=== PATIENT | female | born 1975 | race African-American/Black ===

== ENCOUNTER 2018-02-06 10:27 | Emergency (ER) | payer SELFPAY ==
[2018-02-06] MEDS ORDERED: Sodium Chloride 0.9% 10 ML Syringe FLUSH PRN ×2 (11:16→13:00)
[2018-02-06] MEDS ORDERED: Labetalol 100 MG/20 ML MDV IVPUSH ONE (11:16)
[2018-02-06] MEDS ORDERED: Aspirin 81 MG Tab.Chew PO ONE (11:17)
--- NOTE | 2018-02-06 11:24 | EDM.PDOC ---
ED HPI GENERAL MEDICAL PROBLEM - General Chief Complaint: Upper Extremity Injury/Pain Stated Complaint: LEFT ARM AND HAND PAIN Time Seen by Provider: 02/06/18 11:09 Source of Information: Reports: Patient History Limitations: Reports: No Limitations - History of Present Illness INITIAL COMMENTS - FREE TEXT/NARRATIVE: 42-year-old female presents for evaluation and treatment of left arm pain. Patient reports that the arm pain began suddenly about 2-3 weeks ago. She states the pain has been intermittent and sharp. Reports that it starts in her left shoulder and moves down into her left forearm and hand. She reports weakness in the left hand. Reports numbness and tingling in the left hand and forearm. No pain, numbness or tingling to the right arm. She reports that the problem initially woke her from sleep about 2 weeks ago. She reports "a little "chest pain. she reports shortness of breath which she attributes to weight gain. She also has been experiencing fluttering in her heart. She denies any chest pain initially but later states that she does have any chest pain she attributes this to a "kink in her neck from sleeping wrong". She denies any abdominal pain, nausea or vomiting. No recent cough or cold symptoms. No recent trauma such as motor vehicle accidents. Patient reports she is left-handed. Patient reports that she does take medications for her blood pressure but denies any other chronic problems. No cardiac history including no previous MIs or arrhythmias. Patient reports she's had something similar to this in the past several years that resolved on its own without intervention. Patient does not have a primary care provider. She moved up to [place] from [place] approximately 1 year ago and has not established with primary care. Left Hand Pain Score (Numeric/FACES): 3 - Related Data Allergies Allergy/AdvReac Type Severity Reaction Status Date / Time No Known Allergies Allergy Verified 02/06/18 10:39 Home Meds: Home Meds Chlorthalidone 25 mg PO DAILY 02/06/18 [History] Cyclobenzaprine [Flexeril] 10 mg PO TID PRN 02/06/18 [History] amLODIPine Besylate [Amlodipine Besylate] 5 mg PO DAILY 02/06/18 [History] Past Medical History Cardiovascular History: Reports: Hypertension Social & Family History - Tobacco Use Smoking Status *Q: Never Smoker - Recreational Drug Use Recreational Drug Use: No Review of Systems - Review of Systems Review Of Systems: See Below Constitutional: Denies: Chills, Fever Eyes: Denies: Vision Change Respiratory: Reports: Shortness of Breath. Denies: Cough Cardiovascular: Reports: Chest Pain, Irregular Heart Rate GI/Abdominal: Denies: Abdominal Pain, Nausea, Vomiting Musculoskeletal: Reports: Neck Pain, Shoulder Pain, Arm Pain. Denies: Back Pain Neurological: Reports: Headache, Numbness, Tingling, Weakness ED EXAM, GENERAL - Physical Exam Exam: See Below Exam Limited By: No Limitations General Appearance: Alert, WD/WN, No Apparent Distress Eye Exam: Bilateral Eye: Normal Inspection, PERRL Ears: Normal External Exam Nose: Normal Inspection Throat/Mouth: Normal Inspection, Normal Lips, Normal Oropharynx, Normal Voice, No Airway Compromise Neck: Normal Inspection, Non-Tender, Other (+ spurlings test with left rotation) Respiratory/Chest: No Respiratory Distress, Lungs Clear, Normal Breath Sounds Cardiovascular: Normal Peripheral Pulses, Regular Rate, Rhythm, No Murmur Peripheral Pulses: 2+: Radial (L), Radial (R) GI/Abdominal: Normal Bowel Sounds, Soft, Non-Tender Back Exam: Normal Inspection. No: Vertebral Tenderness Extremities: Normal Inspection, Normal Range of Motion, Non-Tender Neurological: Alert, Oriented, Normal Cognition, Other (hoof trimmer 5/5 bilaterally) Psychiatric: Normal Affect, Normal Mood Skin Exam: Warm, Dry, Normal Color EKG INTERPRETATION EKG Date: 02/06/18 Time: 11:20 Rhythm: NSR Rate (Beats/Min): 89 [place]: Normal P-Wave: Present QRS: Normal ST-T: Normal QT: Normal EKG Interpretation Comments: NSR at 89 bpm. Left ventricular hypertrophy. No acute ischemic changes. Reviewed by myself and Dr. Anthony. Course - Vital Signs Last Recorded V/S: Last Vital Signs Temp 97.2 F 02/06/18 10:39 Pulse 90 02/06/18 12:19 Resp 14 02/06/18 10:39 BP 154/93 H 02/06/18 12:19 Pulse Ox 98 02/06/18 10:39 - Orders/Labs/Meds Labs: Laboratory Tests 02/06/18 02/06/18 02/06/18 Range/Units 11:45 11:45 11:45 WBC 6.51 (3.98-10.04) K/mm3 RBC 4.66 (3.98-5.22) M/mm3 Hgb 13.7 (11.2-15.7) gm/L Hct 39.0 (34.1-44.9) % MCV 83.7 (79.4-94.8) fl MCH 29.4 (25.6-32.2) pg MCHC 35.1 (32.2-35.5) g/dl RDW Std Deviation 40.4 (36.4-46.3) fL Plt Count 288 (182-369) K/mm3 MPV 10.0 (9.4-12.3) fl Neut % (Auto) 50.8 (34.0-71.1) % Lymph % (Auto) 37.3 (19.3-51.7) % [place] % (Auto) 9.1 (4.7-12.5) % Eos % (Auto) 2.3 (0.7-5.8) Baso % (Auto) 0.2 (0.1-1.2) % Neut # (Auto) 3.31 (1.56-6.13) K/mm3 Lymph # (Auto) 2.43 (1.18-3.74) K/mm3 [place] # (Auto) 0.59 H (0.24-0.36) K/mm3 Eos # (Auto) 0.15 (0.04-0.36) K/mm3 Baso # (Auto) 0.01 (0.01-0.08) K/mm3 PT 10.0 (9.5-12.1) SECONDS INR < 0.93 D-Dimer, Quantitative (0.19-0.50) mg/L Sodium 138 (136-145) mEq/L Potassium 3.6 (3.5-5.1) mEq/L Chloride 103 (98-107) mEq/L Carbon Dioxide 25 (21-32) mEq/L Anion Gap 13.6 (5-15) BUN 8 (7-18) mg/dL Creatinine 1.0 (0.55-1.02) mg/dL Est Cr Clr Drug Dosing 77.63 mL/min Estimated GFR (MDRD) > 60 (>60) mL/min BUN/Creatinine Ratio 8.0 L (14-18) Glucose 145 H (74-106) mg/dL Calcium 7.6 L (8.5-10.1) mg/dL Total Bilirubin 0.6 (0.2-1.0) mg/dL AST TNP ALT TNP Alkaline Phosphatase 83 (46-116) U/L CK-MB (CK-2) 1.2 (0-3.6) ng/ml Troponin I < 0.017 (0.00-0.056) ng/mL Total Protein TNP Albumin 3.0 L (3.4-5.0) g/dl Globulin 4.7 gm/dL Albumin/Globulin Ratio 0.6 L (1-2) 02/06/18 Range/Units 11:45 WBC (3.98-10.04) K/mm3 RBC (3.98-5.22) M/mm3 Hgb (11.2-15.7) gm/L Hct (34.1-44.9) % MCV (79.4-94.8) fl MCH (25.6-32.2) pg MCHC (32.2-35.5) g/dl RDW Std Deviation (36.4-46.3) fL Plt Count (182-369) K/mm3 MPV (9.4-12.3) fl Neut % (Auto) (34.0-71.1) % Lymph % (Auto) (19.3-51.7) % [place] % (Auto) (4.7-12.5) % Eos % (Auto) (0.7-5.8) Baso % (Auto) (0.1-1.2) % Neut # (Auto) (1.56-6.13) K/mm3 Lymph # (Auto) (1.18-3.74) K/mm3 [place] # (Auto) (0.24-0.36) K/mm3 Eos # (Auto) (0.04-0.36) K/mm3 Baso # (Auto) (0.01-0.08) K/mm3 PT (9.5-12.1) SECONDS INR D-Dimer, Quantitative 0.60 H (0.19-0.50) mg/L Sodium (136-145) mEq/L Potassium (3.5-5.1) mEq/L Chloride (98-107) mEq/L Carbon Dioxide (21-32) mEq/L Anion Gap (5-15) BUN (7-18) mg/dL Creatinine (0.55-1.02) mg/dL Est Cr Clr Drug Dosing mL/min Estimated GFR (MDRD) (>60) mL/min BUN/Creatinine Ratio (14-18) Glucose (74-106) mg/dL Calcium (8.5-10.1) mg/dL Total Bilirubin (0.2-1.0) mg/dL AST ALT Alkaline Phosphatase (46-116) U/L CK-MB (CK-2) (0-3.6) ng/ml Troponin I (0.00-0.056) ng/mL Total Protein Albumin (3.4-5.0) g/dl Globulin gm/dL Albumin/Globulin Ratio (1-2) Meds: Medications Discontinued Medications Generic Name Dose Route Start Last Admin Trade Name Freq PRN Reason Stop Dose Admin Aspirin 324 mg 02/06/18 11:17 02/06/18 11:47 Aspirin PO 02/06/18 11:18 324 mg ONETIME ONE Administration Sodium Chloride 100 mls @ 75 mls/hr 02/06/18 13:00 02/06/18 13:31 Normal Saline IV 75 mls/hr ASDIRECTED JOY Administration Iopamidol 50 ml 02/06/18 13:00 02/06/18 13:31 Isovue-370 (76%) IVPUSH 02/06/18 13:01 50 ml ONETIME ONE Administration Iopamidol 100 ml 02/06/18 13:00 02/06/18 13:31 Isovue-370 (76%) IVPUSH 02/06/18 13:01 100 ml ONETIME ONE Administration Labetalol HCl 20 mg 02/06/18 11:16 02/06/18 11:48 Normodyne IVPUSH 02/06/18 11:17 20 mg ONETIME ONE Administration Protocol Sodium Chloride 10 ml 02/06/18 11:16 02/06/18 11:58 Saline Flush FLUSH 10 ml ASDIRECTED PRN Administration Keep Vein Open Sodium Chloride 10 ml 02/06/18 13:00 02/06/18 13:31 Saline Flush FLUSH 10 ml ONETIME PRN Administration IV FLUSH - Radiology Interpretation Free Text/Narrative:: Chest: Portable view of the chest was obtained. Comparison: No prior chest x-ray. Heart size and mediastinum are normal. Lungs are clear. Bony structures are unremarkable. Impression: 1. Nothing acute is seen on portable chest x-ray. CT chest Technique: Multiple axial sections through the chest were obtained. Intravenous contrast was utilized. Comparison: No prior chest CT, previous chest x-ray performed earlier on the same day (11:26 AM. Findings: Pulmonary arteries are well-opacified. No filling defects are seen to indicate pulmonary embolism. Small portion of visualized upper abdominal structures are normal. Mediastinum and hilar regions show no adenopathy or mass. No pericardial thickening is seen. Visualized lungs are clear. No pleural effusions are seen. Incidental small air cyst is seen within the right lung base measuring 7 mm. Bone window settings were reviewed which shows no acute osseous abnormality. Impression: 1. No findings of pulmonary embolism. 2. Other incidental findings as noted above. Left upper extremity venous ultrasound: Multiple real-time images were obtained of the left internal jugular, subclavian, axillary, basilic, brachial, cephalic , radial and ulnar veins. Right subclavian vein was also evaluated. Normal compression, phasic flow and augmentation is seen. Right subclavian vein is also patent. Impression: 1. No evidence of venous thrombosis is seen within the left upper extremity. - Re-Assessments/Exams Free Text/Narrative Re-Assessment/Exam: 02/06/18 12:55 Labs returned with a slightly elevated d-dimer of 0.60. Will obtain PE chest and ultrasound of upper extremity to ensure she does not have a clot causing left arm pain and chest pain. b/p has dropped into the 150s/160s systolic with IV labetolol. She reports she did not take her routine b/p meds this am. Will continue to monitor b/p in ED. 02/06/18 14:[address] and ultrasound results with the patient. I do feel that arm pain, numbness, tingling and weakness is likely stemming from her neck and she may have something like herniated disc or nerve root impingement within her neck. I'll follow up with family medicine for possibly an MRI. Discharge instructions as documented. Departure - Departure Time of Disposition: 14:35 Disposition: Home, Self-Care 01 Condition: Fair Clinical Impression: Arm pain, left - Discharge Information Instructions: Pain Without a Known Cause Referrals: PCP,None [Primary Care Provider] - Cari Rodgers MD [Physician] - Forms: ED Department Discharge Additional Instructions: [id number] Tylenol or Motrin as needed for pain relief. You may use ice or heat as needed for additional pain relief. Recommend follow-up with family medicine within 1-2 weeks to recheck your symptoms. You may need an MRI of your cervical spine to further evaluate the cause of your left arm pain, weakness, numbness and tingling. Recommend Dr. Rodgers or Chetna Desai at the [facility]. Call [phone] to schedule with one of these providers Please return to the ER if your symptoms change or worsen.
[2018-02-06] MEDS ORDERED: Iopamidol 755 Mg/ML 100 ML Bottle IVPUSH ONE (13:00)
[2018-02-06] MEDS ORDERED: Iopamidol 755 MG/ML 50 ML Bottle IVPUSH ONE (13:00)
[2018-02-06] MEDS ORDERED: Sodium Chloride 0.9% 100 ML IV SCH (13:00)
--- NOTE | 2018-02-06 13:49 | CT ---
CT chest Technique: Multiple axial sections through the chest were obtained. Intravenous contrast was utilized. Comparison: No prior chest CT, previous chest x-ray performed earlier on the same day (11:26 AM. Findings: Pulmonary arteries are well-opacified. No filling defects are seen to indicate pulmonary embolism. Small portion of visualized upper abdominal structures are normal. Mediastinum and hilar regions show no adenopathy or mass. No pericardial thickening is seen. Visualized lungs are clear. No pleural effusions are seen. Incidental small air cyst is seen within the right lung base measuring 7 mm. Bone window settings were reviewed which shows no acute osseous abnormality. Impression: 1. No findings of pulmonary embolism. 2. Other incidental findings as noted above. Diagnostic code #1
--- NOTE | 2018-02-06 14:26 | US ---
Left upper extremity venous ultrasound: Multiple real-time images were obtained of the left internal jugular, subclavian, axillary, basilic, brachial, cephalic, radial and ulnar veins. Right subclavian vein was also evaluated. Normal compression, phasic flow and augmentation is seen. Right subclavian vein is also patent. Impression: 1. No evidence of venous thrombosis is seen within the left upper extremity. Diagnostic code #1
--- NOTE | 2018-02-06 14:46 | CR ---
Chest: Portable view of the chest was obtained. Comparison: No prior chest x-ray. Heart size and mediastinum are normal. Lungs are clear. Bony structures are unremarkable. Impression: 1. Nothing acute is seen on portable chest x-ray. Diagnostic code #1
== END 2018-02-06 14:55 | disposition home or self-care (01) ==
LOC: JD.ED 10:27
DX: M79.602 Pain in left arm (principal); I10 Essential (primary) hypertension; Z79.899 Other long term (current) drug therapy
CPT/HCPCS: 36415; 71045; 71275; 80053; 82553; 84484; 85025; 85379; 85610; 93005; 93971; 96374; 99285; A9270; J7030; J7050; Q9967; 93010; 99284

== ENCOUNTER 2019-02-04 16:26 | Emergency (ER) | payer MEDICAID ==
[2019-02-04] MEDS ORDERED: Potassium Chloride 20 MEQ Tab.ER PO ONE (18:05)
--- NOTE | 2019-02-04 18:23 | EDM.PDOC ---
ED HPI GENERAL MEDICAL PROBLEM - General Chief Complaint: Cardiovascular Problem Stated Complaint: HIGH BLOOD PRESSURE,SOB Time Seen by Provider: 02/04/19 16:45 Source of Information: Reports: Patient History Limitations: Reports: No Limitations - History of Present Illness INITIAL COMMENTS - FREE TEXT/NARRATIVE: 43-year-old female presents for evaluation and treatment of elevated blood pressure and shortness of breath. Patient reports that she has been experiencing shortness of breath on exertion for about the last week. She is not having shortness of breath at rest. She denies any chest pain. She states that she feels slightly lightheaded but denies any syncope. She also reports feeling palpitations and feeling flushed. She denies any recent cough or cold symptoms. No ear pain or sore throat. She denies any pain or swelling in her legs. She is not a smoker any oral contraceptives. she denies any pulmonary history such as asthma or copd. patient reports that her blood pressure has been elevated. she is on amlodipine 5 mg of chlorthalidone 25 mg per she has been taking these as prescribed. states that she has a little bit of a headache that has a history of migraines. Does not have a primary care provider here in [place]. - Related Data Allergies Allergy/AdvReac Type Severity Reaction Status Date / Time No Known Allergies Allergy Verified 02/06/18 10:39 Home Meds: Home Meds Chlorthalidone 25 mg PO DAILY 02/06/18 [History] amLODIPine Besylate [Amlodipine Besylate] 5 mg PO DAILY 02/06/18 [History] Albuterol [Ventolin HFA] 1 puff INH Q4H PRN #1 puff 02/04/19 [Rx] Past Medical History Cardiovascular History: Reports: Hypertension Psychiatric History: Reports: Anxiety, Depression Other Psychiatric History: has been off meds for awhile and feels maybe anxiety is coming back Social & Family History - Tobacco Use Smoking Status *Q: Never Smoker - Caffeine Use Caffeine Use: Reports: Soda, Tea - Recreational Drug Use Recreational Drug Use: No ED ROS GENERAL - Review of Systems Review Of Systems: See Below HEENT: Denies: Ear Pain, Throat Pain Respiratory: Denies: Shortness of Breath, Cough Cardiovascular: Reports: Blood Pressure Problem (reports high blood pressure), Dyspnea on Exertion, Lightheadedness, Palpitations. Denies: Chest Pain, Syncope Musculoskeletal: Reports: Other (no leg swelling). Denies: Leg Pain Skin: Reports: Other (reports feeling flushed) Neurological: Reports: Headache ED EXAM, GENERAL - Physical Exam Exam: See Below Exam Limited By: No Limitations General Appearance: Alert, WD/WN, No Apparent Distress, Obese Ears: Normal External Exam, Normal Canal, Hearing Grossly Normal, Normal TMs Nose: Normal Inspection Throat/Mouth: Normal Inspection, Normal Lips, Normal Voice, No Airway Compromise Neck: Normal Inspection Respiratory/Chest: No Respiratory Distress, Lungs Clear, Normal Breath Sounds Cardiovascular: Normal Peripheral Pulses, Regular Rate, Rhythm, No Murmur Extremities: Normal Inspection Neurological: Alert, Oriented, Normal Cognition Psychiatric: Normal Affect, Normal Mood Skin Exam: Warm, Dry, Normal Color EKG INTERPRETATION EKG Date: 02/04/19 Time: 17:08 Rhythm: NSR Rate (Beats/Min): 97 [place]: Normal P-Wave: Present QRS: Normal ST-T: Normal QT: Prolonged (mildly) EKG Interpretation Comments: NSR at 97 bpm. Tall 'R' waves I - likely LVH. QTc is minimally prolonged with a QTc of 477. Reviewed by myself and Dr. Gray. Course - Vital Signs Last Recorded V/S: Last Vital Signs Temp 97.6 F 02/04/19 16:32 Pulse 105 H 02/04/19 16:32 Resp 16 02/04/19 16:32 BP 170/111 H 02/04/19 16:32 Pulse Ox 97 02/04/19 16:32 - Orders/Labs/Meds Labs: Laboratory Tests 02/04/19 02/04/19 Range/Units 17:25 17:25 WBC 8.28 (3.98-10.04) K/mm3 RBC 5.01 (3.98-5.22) M/mm3 Hgb 13.9 (11.2-15.7) gm/L Hct 41.3 (34.1-44.9) % MCV 82.4 (79.4-94.8) fl MCH 27.7 (25.6-32.2) pg MCHC 33.7 (32.2-35.5) g/dl RDW Std Deviation 42.6 (36.4-46.3) fL Plt Count 318 (182-369) K/mm3 MPV 10.4 (9.4-12.3) fl Neut % (Auto) 50.3 (34.0-71.1) % Lymph % (Auto) 38.5 (19.3-51.7) % [place] % (Auto) 8.8 (4.7-12.5) % Eos % (Auto) 1.8 (0.7-5.8) Baso % (Auto) 0.4 (0.1-1.2) % Neut # (Auto) 4.16 (1.56-6.13) K/mm3 Lymph # (Auto) 3.19 (1.18-3.74) K/mm3 [place] # (Auto) 0.73 H (0.24-0.36) K/mm3 Eos # (Auto) 0.15 (0.04-0.36) K/mm3 Baso # (Auto) 0.03 (0.01-0.08) K/mm3 Sodium 137 (136-145) mEq/L Potassium 3.0 L (3.5-5.1) mEq/L Chloride 101 (98-107) mEq/L Carbon Dioxide 25 (21-32) mEq/L Anion Gap 14.0 (5-15) BUN 12 (7-18) mg/dL Creatinine 0.9 (0.55-1.02) mg/dL Est Cr Clr Drug Dosing 85.36 mL/min Estimated GFR (MDRD) > 60 (>60) mL/min BUN/Creatinine Ratio 13.3 L (14-18) Glucose 120 H (74-106) mg/dL Calcium 9.0 (8.5-10.1) mg/dL Total Bilirubin 0.5 (0.2-1.0) mg/dL AST 17 (15-37) U/L ALT 29 (14-59) U/L Alkaline Phosphatase 101 (46-116) U/L Troponin I < 0.017 (0.00-0.056) ng/mL Total Protein 8.3 H (6.4-8.2) g/dl Albumin 3.7 (3.4-5.0) g/dl Globulin 4.6 gm/dL Albumin/Globulin Ratio 0.8 L (1-2) TSH 3rd Generation 1.932 (0.358-3.74) uIU/mL Meds: Medications Discontinued Medications Generic Name Dose Route Start Last Admin Trade Name Freq PRN Reason Stop Dose Admin Potassium Chloride 40 meq 02/04/19 18:05 02/04/19 18:30 Klor-Con M20 PO 02/04/19 18:06 40 meq ONETIME ONE Administration - Radiology Interpretation Free Text/Narrative:: 2 view chest xray shows no acute intrathoracic process - Re-Assessments/Exams Free Text/Narrative Re-Assessment/Exam: 02/04/19 18:20 Reviewed the labs, ekg and imaging with the patient. Will discharge home today. Will try albuterol for exercise induced asthma. Will increase amlodipine to 10mg PO daily. Will discharge instructions as documented. Departure - Departure Time of Disposition: 18:21 Disposition: Home, Self-Care 01 Condition: Good Clinical Impression: Exercise-induced asthma, Hypertension Prescriptions: Albuterol [Ventolin HFA] 1 puff INH Q4H PRN #1 puff PRN Reason: Shortness Of Breath Instructions: Asthma, Adult, Hypertension Referrals: PCP,None [Primary Care Provider] - Mell Hairston PA-C [Physician Edi Analyst] - Forms: ED Department Discharge Additional Instructions: Use the albuterol as prescribed. One of 2 puffs every 4-6 hours as needed for shortness breath. You may use 20 minutes prior to exercise to help prevent any shortness breath while you're exerting herself. Recommend purchasing a spacer, these are available to pharmacy to optimize the albuterol. Increase amlodipine to 10 mg by mouth daily. Check your blood pres every other day and record this. Check after resting for approximately 15 minutes. Do not check if you're feeling stress, anxious or ill. Follow-up with a primary care provider in the clinic. Recommend Dr. Rodgers or Chetna Hairston at the [facility]. Call [phone] to schedule with one of these providers. Please return to the ER for symptoms change or worsen.
--- NOTE | 2019-02-05 07:40 | CR ---
Chest: Two views of the chest were obtained. Comparison: Prior chest x-ray of 02/06/[address] also performed on 02/06/18. Heart size and mediastinum are within normal limits. Bony structures are within normal limits for the patient's age. Lungs show no acute parenchymal change. Impression: 1. Nothing acute is appreciated on two-view chest x-ray. Diagnostic code #1
== END 2019-02-04 18:40 | disposition home or self-care (01) ==
LOC: JD.ED 16:26
DX: J45.990 Exercise induced bronchospasm (principal); I10 Essential (primary) hypertension; Z79.899 Other long term (current) drug therapy
CPT/HCPCS: 36415; 71046; 80053; 84443; 84484; 85025; 93005; 99285; A9270; 93010; 99283

== ENCOUNTER 2019-12-24 12:38 | Emergency (ER) | payer SELFPAY ==
[2019-12-24] MEDS ORDERED: Sodium Chloride 0.9% 10 ML Syringe FLUSH PRN (12:51)
[2019-12-24] MEDS ORDERED: Aspirin 81 MG Tab.Chew PO ONE (12:51)
[2019-12-24] MEDS ORDERED: Famotidine 20 MG/2 ML SDV IVPUSH ONE (12:52)
--- NOTE | 2019-12-24 12:58 | EDM.PDOC ---
ED HPI GENERAL MEDICAL PROBLEM - General Chief Complaint: Chest Pain Stated Complaint: [facility] Time Seen by Provider: 12/24/19 12:47 Source of Information: Reports: Patient, EMS History Limitations: Reports: No Limitations - History of Present Illness INITIAL COMMENTS - FREE TEXT/NARRATIVE: The patient presents by [facility] for chest pain. She said this started about an hour ago. The pain is burning and she has some shortness of breath with it The pain is in the center of her chest. She has no fever, chills, cough, congestion, runny nose, abdominal pain, nausea or vomiting. She says she had some pains like this for about a week. She also notes that she felt like her heart was beating fast but that has improved. For the past week she has also felt the palpitations. She has no history of heart problems. She does not smoke. She does have a history of high blood pressure and diabetes. Onset: Gradual Duration: Week(s): Location: Reports: Chest Quality: Reports: Burning Severity: Moderate Improves with: Reports: None Worsens with: Reports: None Associated Symptoms: Reports: Chest Pain, Shortness of Breath. Denies: Confusion, Cough, Fever/Chills, Headaches, Nausea/Vomiting Left Chest Pain Score (Numeric/FACES): 8 - Related Data Allergies Allergy/AdvReac Type Severity Reaction Status Date / Time No Known Allergies Allergy Verified 12/24/19 12:44 Home Meds: Home Meds Chlorthalidone 25 mg PO DAILY 02/06/18 [History] amLODIPine Besylate [Amlodipine Besylate] 5 mg PO DAILY 02/06/18 [History] Albuterol [Ventolin HFA] 1 puff INH Q4H PRN #1 puff 02/04/19 [Rx] carvediloL [Coreg] 12.5 mg PO BID 12/24/19 [History] carvediloL [Coreg] 25 mg PO BID #60 tablet 12/24/19 [Rx] metFORMIN [Glucophage XR] 500 mg PO DAILY 12/24/19 [History] Past Medical History Cardiovascular History: Reports: Hypertension Psychiatric History: Reports: Anxiety, Depression Other Psychiatric History: has been off meds for awhile and feels maybe anxiety is coming back Social & Family History - Tobacco Use Smoking Status *Q: Never Smoker - Caffeine Use Caffeine Use: Reports: Coffee - Recreational Drug Use Recreational Drug Use: No ED ROS GENERAL - Review of Systems Review Of Systems: See Below Constitutional: Reports: No Symptoms HEENT: Reports: No Symptoms Respiratory: Reports: Shortness of Breath Cardiovascular: Reports: Chest Pain Endocrine: Reports: No Symptoms GI/Abdominal: Reports: No Symptoms : Reports: No Symptoms Musculoskeletal: Reports: No Symptoms ED EXAM, GENERAL - Physical Exam Exam: See Below Exam Limited By: No Limitations General Appearance: Alert, No Apparent Distress Ears: Normal External Exam Nose: Normal Inspection Head: Atraumatic, Normocephalic Neck: Normal Inspection Respiratory/Chest: No Respiratory Distress, Lungs Clear, Normal Breath Sounds Cardiovascular: Regular Rate, Rhythm, No Edema, No Murmur GI/Abdominal: Soft, Non-Tender, No Organomegaly, No Mass Back Exam: Normal Inspection Extremities: Normal Inspection Neurological: Alert, Oriented, No Motor/Sensory Deficits EKG INTERPRETATION EKG Date: 12/24/19 Time: 12:43 Rhythm: NSR Rate (Beats/Min): 86 Ethel: Normal P-Wave: Present QRS: Normal ST-T: Normal QT: Normal Course - Vital Signs Last Recorded V/S: Last Vital Signs Temp 97.0 F 12/24/19 12:40 Pulse 96 12/24/19 12:40 Resp 20 12/24/19 12:40 BP 181/123 H 12/24/19 12:40 Pulse Ox 100 12/24/19 12:40 - Orders/Labs/Meds Orders: Active Orders 24 hr Category Date Time Status Cardiac Monitoring [RC] . DIRECTED Care 12/24/19 12:51 Active EKG Documentation Completion [RC] ASDIRECTED Care 12/24/19 12:42 Active Holter Monitor 48 Hours [RC] .PRN Care 12/24/19 14:58 Active Peripheral IV Care [RC] . DIRECTED Care 12/24/19 12:52 Active Sodium Chloride 0.9% [Saline Flush] Med 12/24/19 12:51 Active 10 ml FLUSH ASDIRECTED PRN Peripheral IV Insertion Adult [OM.PC] Stat Oth 12/24/19 12:51 Ordered EKG 12 Lead [EK] Stat Ther 12/24/19 12:41 Ordered Medication Orders Sodium Chloride (Saline Flush) 10 ml FLUSH ASDIRECTED PRN PRN Reason: Keep Vein Open Last Admin: 12/24/19 12:59 Dose: 10 ml Labs: Laboratory Tests 12/24/19 12/24/19 12/24/19 Range/Units 12:56 12:56 12:56 WBC 5.71 (3.98-10.04) K/mm3 RBC 5.00 (3.98-5.22) M/mm3 Hgb 14.5 (11.2-15.7) gm/dl Hct 42.3 (34.1-44.9) % MCV 84.6 (79.4-94.8) fl MCH 29.0 (25.6-32.2) pg MCHC 34.3 (32.2-35.5) g/dl RDW Std Deviation 42.6 (36.4-46.3) fL Plt Count 322 (182-369) K/mm3 MPV 10.4 (9.4-12.3) fl Neut % (Auto) 39.6 (34.0-71.1) % Lymph % (Auto) 49.4 (19.3-51.7) % Hancock % (Auto) 8.6 (4.7-12.5) % Eos % (Auto) 1.8 (0.7-5.8) Baso % (Auto) 0.4 (0.1-1.2) % Neut # (Auto) 2.27 (1.56-6.13) K/mm3 Lymph # (Auto) 2.82 (1.18-3.74) K/mm3 Hancock # (Auto) 0.49 H (0.24-0.36) K/mm3 Eos # (Auto) 0.10 (0.04-0.36) K/mm3 Baso # (Auto) 0.02 (0.01-0.08) K/mm3 D-Dimer, Quantitative 0.29 (0.19-0.50) mg/L Sodium 136 (136-145) mEq/L Potassium 3.5 (3.5-5.1) mEq/L Chloride 101 (98-107) mEq/L Carbon Dioxide 24 (21-32) mEq/L Anion Gap 14.5 (5-15) BUN 9 (7-18) mg/dL Creatinine 0.9 (0.55-1.02) mg/dL Est Cr Clr Drug Dosing 85.36 mL/min Estimated GFR (MDRD) > 60 (>60) mL/min BUN/Creatinine Ratio 10.0 L (14-18) Glucose 147 H (74-106) mg/dL Calcium 8.4 L (8.5-10.1) mg/dL Total Bilirubin 0.7 (0.2-1.0) mg/dL AST TNP ALT TNP Alkaline Phosphatase 87 (46-116) U/L Troponin I < 0.017 (0.00-0.056) ng/mL Total Protein 8.3 H (6.4-8.2) g/dl Albumin 3.5 (3.4-5.0) g/dl Globulin 4.8 gm/dL Albumin/Globulin Ratio 0.7 L (1-2) 12/24/19 Range/Units 15:36 WBC (3.98-10.04) K/mm3 RBC (3.98-5.22) M/mm3 Hgb (11.2-15.7) gm/dl Hct (34.1-44.9) % MCV (79.4-94.8) fl MCH (25.6-32.2) pg MCHC (32.2-35.5) g/dl RDW Std Deviation (36.4-46.3) fL Plt Count (182-369) K/mm3 MPV (9.4-12.3) fl Neut % (Auto) (34.0-71.1) % Lymph % (Auto) (19.3-51.7) % Hancock % (Auto) (4.7-12.5) % Eos % (Auto) (0.7-5.8) Baso % (Auto) (0.1-1.2) % Neut # (Auto) (1.56-6.13) K/mm3 Lymph # (Auto) (1.18-3.74) K/mm3 Hancock # (Auto) (0.24-0.36) K/mm3 Eos # (Auto) (0.04-0.36) K/mm3 Baso # (Auto) (0.01-0.08) K/mm3 D-Dimer, Quantitative (0.19-0.50) mg/L Sodium (136-145) mEq/L Potassium (3.5-5.1) mEq/L Chloride (98-107) mEq/L Carbon Dioxide (21-32) mEq/L Anion Gap (5-15) BUN (7-18) mg/dL Creatinine (0.55-1.02) mg/dL Est Cr Clr Drug Dosing mL/min Estimated GFR (MDRD) (>60) mL/min BUN/Creatinine Ratio (14-18) Glucose (74-106) mg/dL Calcium (8.5-10.1) mg/dL Total Bilirubin (0.2-1.0) mg/dL AST ALT Alkaline Phosphatase (46-116) U/L Troponin I < 0.017 (0.00-0.056) ng/mL Total Protein (6.4-8.2) g/dl Albumin (3.4-5.0) g/dl Globulin gm/dL Albumin/Globulin Ratio (1-2) Meds: Medications Generic Name Dose Route Start Last Admin Trade Name Freq PRN Reason Stop Dose Admin Sodium Chloride 10 ml 12/24/19 12:51 12/24/19 12:59 Saline Flush FLUSH 10 ml ASDIRECTED PRN Administration Keep Vein Open Discontinued Medications Generic Name Dose Route Start Last Admin Trade Name Freq PRN Reason Stop Dose Admin Aspirin 324 mg 12/24/19 12:51 12/24/19 12:59 Aspirin PO 12/24/19 12:52 324 mg ONETIME ONE Administration Famotidine 20 mg 12/24/19 12:52 12/24/19 12:58 Pepcid IVPUSH 12/24/19 12:53 20 mg ONETIME ONE Administration - Re-Assessments/Exams Free Text/Narrative Re-Assessment/Exam: 12/24/19 12:57 I ordered an IV saline lock, EKG, CXR, labs, aspirin, and pepcid. Her EKG shows a NSR with no acute changes. 12/24/19 13:54 Her CXR shows nothing acute. Her CBC looks good. Her glucose is elevated at 147. Her troponin is negative. Her D-dimer is normal. 12/24/19 16:23 Her repeat troponin is negative. I will discharge her home on a holter monitor and I will increase her coreg to 25mg BID. I will also have her follow up with Meena uGillen. Departure - Departure Time of Disposition: 16:30 Disposition: Home, Self-Care 01 Condition: Good Clinical Impression: Palpitations Hypertension Qualifiers: Hypertension type: essential hypertension Qualified Code(s): I10 - Essential ( primary) hypertension Chest pain Qualifiers: Chest pain type: unspecified Qualified Code(s): R07.9 - Chest pain, unspecified Prescriptions: carvediloL [Coreg] 25 mg PO BID #60 tablet Referrals: PCP,None [Primary Care Provider] - Meena Guillen DOOR MANAGER [Nurse Practitioner] - 1 Week Forms: ED Department Discharge Additional Instructions: Wear the holter monitor for 48 hours. I have increased your coreg to 25mg 2 times per day. Follow up with Meena Guillen in our clinic please return if you are worse. Sepsis Event Note - Evaluation Sepsis Screening Result: No Definite Risk - Focused Exam Vital Signs: Vital Signs Temp Pulse Resp BP Pulse Ox 12/24/19 12:40 97.0 F 96 20 181/123 H 100 Date Exam was Performed: 12/24/19 Time Exam was Performed: 16:23 - My Orders Last 24 Hours: My Active Orders 12/24/19 12:41 EKG 12 Lead [EK] Stat 12/24/19 12:42 EKG Documentation Completion [RC] ASDIRECTED 12/24/19 12:51 Cardiac Monitoring [RC] . DIRECTED Sodium Chloride 0.9% [Saline Flush] 10 ml FLUSH ASDIRECTED PRN Peripheral IV Insertion Adult [OM.PC] Stat 12/24/19 12:52 Peripheral IV Care [RC] . DIRECTED 12/24/19 14:58 Holter Monitor 48 Hours [RC] .PRN - Assessment/Plan Last 24 Hours: My Active Orders 12/24/19 12:41 EKG 12 Lead [EK] Stat 12/24/19 12:42 EKG Documentation Completion [RC] ASDIRECTED 12/24/19 12:51 Cardiac Monitoring [RC] . DIRECTED Sodium Chloride 0.9% [Saline Flush] 10 ml FLUSH ASDIRECTED PRN Peripheral IV Insertion Adult [OM.PC] Stat 12/24/19 12:52 Peripheral IV Care [RC] . DIRECTED 12/24/19 14:58 Holter Monitor 48 Hours [RC] .PRN
--- NOTE | 2019-12-24 13:46 | CR ---
Chest: Portable view of the chest was obtained. Comparison: Prior chest x-ray of 02/06/18. Heart size and mediastinum are normal. Lungs are clear with no acute parenchymal change. Bony structures are grossly intact. Impression: 1. Nothing acute is seen on portable chest x-ray. Diagnostic code #1 This report was dictated in MDT
== END 2019-12-24 16:40 | disposition home or self-care (01) ==
LOC: JD.ED 12:38
DX: I10 Essential (primary) hypertension (principal); Z79.899 Other long term (current) drug therapy
CPT/HCPCS: 36415; 71045; 80053; 84484; 85025; 85379; 93005; 93225; 93226; 96374; 99285; A9270; J3490; 93010; 99284

== ENCOUNTER 2021-05-30 08:12 | Emergency (ER) | payer SELFPAY ==
--- NOTE | 2021-05-30 08:43 | EDM.PDOC ---
ED HPI GENERAL MEDICAL PROBLEM - General Chief Complaint: Gastrointestinal Problem Stated Complaint: ABD PAIN POST SURGERY Time Seen by Provider: 05/30/21 08:27 Source of Information: Reports: Patient History Limitations: Reports: No Limitations - History of Present Illness INITIAL COMMENTS - FREE TEXT/NARRATIVE: 45-year-old female presents the emergency department today with complaints of constipation. Patient states that she had a [place] but left and a tummy tuck on 05/22/2021 in [facility]. She states that she was prescribed narcotic pain medication and muscle relaxers to treat the postop pain. She states she has been taking a significant amount of these medications as well as [id number] stool softener however she has not been able to have a bowel movement since 05/19/2021. States she has tried MiraLAX, stool softeners, and a fleets enema. Patient states that when she tries to have a bowel movement she is developed hemorrhoids and now it is extremely painful to try and have a bowel movement. She denies any nausea, vomiting, diarrhea, fever or chills. She states that her appetite is still normal however she has stopped eating as much as she states she has not had a bowel movement. She states she is otherwise healthy. She does not have a primary care provider in the area. CATERINA drain is still in place to the abdomen. She states that her primary care provider will be removing this. Abdomen Pain Score (Numeric/FACES): 10 - Related Data Allergies Allergy/AdvReac Type Severity Reaction Status Date / Time No Known Allergies Allergy Verified 05/30/21 08:29 Home Meds: Home Meds Chlorthalidone 25 mg PO DAILY 02/06/18 [History] amLODIPine Besylate [Amlodipine Besylate] 5 mg PO DAILY 02/06/18 [History] metFORMIN [Glucophage XR] 500 mg PO DAILY 12/24/19 [History] Past Medical History Cardiovascular History: Reports: Hypertension Psychiatric History: Reports: Anxiety, Depression Other Psychiatric History: has been off meds for awhile and feels maybe anxiety is coming back - Past Surgical History Dermatological Surgical History: Reports: Other (See Below) Social & Family History - Tobacco Use Tobacco Use Status *Q: Never Tobacco User - Caffeine Use Caffeine Use: Reports: Soda - Recreational Drug Use Recreational Drug Use: No ED ROS GENERAL - Review of Systems Review Of Systems: Comprehensive ROS is negative, except as noted in HPI. ED EXAM, GI/ABD - Physical Exam Exam: See Below Exam Limited By: No Limitations General Appearance: Alert, WD/WN, Mild Distress Ears: Normal External Exam, Hearing Grossly Normal Nose: Normal Inspection Throat/Mouth: Normal Inspection, Normal Lips, Normal Voice, No Airway Compromise Head: Atraumatic Neck: Normal Inspection, Supple Respiratory/Chest: No Respiratory Distress, Lungs Clear, Normal Breath Sounds, No Accessory Muscle Use, Chest Non-Tender Cardiovascular: Normal Peripheral Pulses, Regular Rate, Rhythm, No Edema, No Murmur GI/Abdominal Exam: Soft, Non-Tender, No Distention, Abnormal Bowel Sounds (Hypoactive), Other (CATERINA drain in place to abdomen) (Female) Exam: Deferred Rectal (Female) Exam: Deferred Back Exam: Normal Inspection Extremities: Normal Inspection Neurological: Alert, Oriented, Normal Cognition Psychiatric: Normal Affect, Normal Mood Skin Exam: Warm, Dry, Intact, Normal Color, No Rash Lymphatic: No Adenopathy Course - Vital Signs Text/Narrative:: As stated above, patient presents with no bowel movement since 05/19/2021. She has tried various [id number] medications to produce a bowel movement however has been unsuccessful. At the time of my exam, patient is hemodynamically stable. Bowel sounds are hypoactive in all 4 quadrants. Lung sounds are clear to auscultation. Will obtain a flatplate of the abdomen. Last Recorded V/S: Last Vital Signs Temp 96.7 F L 05/30/21 08:27 Pulse 117 H 05/30/21 08:27 Resp 18 05/30/21 08:27 BP 153/85 H 05/30/21 08:27 Pulse Ox 98 05/30/21 08:27 - Orders/Labs/Meds Orders: Active Orders 24 hr Category Date Time Status Enema [RC] ASDIRECTED Care 05/30/21 09:10 Active Meds: Medications Discontinued Medications Generic Name Dose Route Start Last Admin Trade Name Freq PRN Reason Stop Dose Admin Lidocaine HCl 10 ml 05/30/21 09:10 05/30/21 09:15 Lidocaine 2% Jelly 10 Ml Urojet MUCMEM 05/30/21 09:11 10 ml ONETIME ONE Administration - Re-Assessments/Exams Free Text/Narrative Re-Assessment/Exam: 05/30/21 09:27 Radiologist impression supine view of the abdomen: 1. Nothing acute is seen on supine abdominal x-ray. Bowel gas pattern is within normal limits. Patient does have what appears to be a large ball of stool in the rectum. We will have nursing staff give the patient a tap water enema. 05/30/21 11:40 Patient was able to have a very large bowel movement while in the emergency department. She states she is feeling a little better. We will give her one half bottle of Citroma to drink while in the emergency department and she can take the remainder home with her. She has been instructed that if she does not have a bowel movement within the next 3 hours to drink the remaining bottle of Citroma. This should give her a good bowel cleanse. Departure - Departure Time of Disposition: 11:41 Disposition: Home, Self-Care 01 Condition: Good Clinical Impression: Constipation - Discharge Information Instructions: Constipation, Adult, [id number] Referrals: Jennifer Jáurez, DIRECTOR TOXICOLOGY [Primary Care Provider] - Forms: ED Department Discharge Additional Instructions: You were seen in the emergency department today with complaints of constipation. X-ray was completed which did show moderate amount of stool in your colon. You were given an enema while in the emergency department and did have a large amount of stool as result. You were given a half bottle of magnesium citrate to drink. If you do not have a bowel movement within 3 hours recommend you drink the remaining bottle. To give your bowels a good cleanse. Also recommend that you take 1 scoop of MiraLAX daily for the next 2 weeks to retrain your bowels. Be sure to drink plenty of water to stay hydrated and eat a high-fiber diet to keep your bowels regular. Follow-up with your primary care provider in about a week if your symptoms are not better. Sepsis Event Note (ED) - Evaluation Sepsis Screening Result: No Definite Risk - Focused Exam Vital Signs: Vital Signs Temp Pulse Resp BP Pulse Ox 05/30/21 08:27 96.7 F L 117 H 18 153/85 H 98 - My Orders Last 24 Hours: My Active Orders 05/30/21 09:10 Enema [RC] ASDIRECTED - Assessment/Plan Last 24 Hours: My Active Orders 05/30/21 09:10 Enema [RC] ASDIRECTED
[2021-05-30] MEDS ORDERED: Lidocaine 2% Jelly 10 ML Urojet MUCMEM ONE (09:10)
--- NOTE | 2021-05-30 09:21 | CR ---
Abdomen: Supine view of the abdomen was obtained. Comparison: No prior abdominal imaging is available. Slight phlebolith is seen within the pelvis. Bowel gas pattern is within normal limits. Bony structures appear within normal limits for the patient's age. Impression: 1. Nothing acute is seen on supine abdominal x-ray. Diagnostic code #1
[2021-05-30] MEDS ORDERED: Magnesium Citrate Solution 296 ML Bottle PO ONE (11:38)
== END 2021-05-30 11:55 | disposition home or self-care (01) ==
LOC: JD.ED 08:12
DX: K59.00 Constipation, unspecified (principal); I10 Essential (primary) hypertension; Z79.84 Long term (current) use of oral hypoglycemic drugs
CPT/HCPCS: 74018; 99283; A9270

== ENCOUNTER 2022-09-13 14:44 | Emergency (ER) | payer BC, MEDICAID ==
[2022-09-13] MEDS ORDERED: Aspirin 81 MG Tab.Chew PO ONE (15:05)
[2022-09-13 15:49] LABS: ESTIMATED GFR 62 mL/min (>60)
[2022-09-13] MEDS: Sodium Chloride 0.9% 10 ML Syringe FLUSH PRN ×2 (15:56→16:27)
[2022-09-13] MEDS ORDERED: Ketorolac 30 MG/ML SDV IVPUSH ONE (16:01)
[2022-09-13] MEDS ORDERED: Iopamidol 755 Mg/ML 100 ML Bottle IVPUSH ONE (16:05)
[2022-09-13] MEDS ORDERED: Sodium Chloride 0.9% 10 ML Syringe FLUSH ONE (16:05)
[2022-09-13] MEDS ORDERED: Famotidine 20 MG/2 ML SDV IVPUSH ONE (16:08)
[2022-09-13] MEDS ORDERED: Sodium Chloride 0.9% 100 ML IV SCH (16:15)
== END 2022-09-13 18:11 | disposition home or self-care (01) ==
LOC: JD.ED 14:44
DX: R07.89 Other chest pain (principal); I10 Essential (primary) hypertension
CPT/HCPCS: 36415; 71046; 71275; 80053; 84484; 85025; 85379; 93005; 96374; 96375; 99285; A9270; J1885; J3490; Q9967; 93010; 99284